=== PATIENT | female | born 1990 | race Caucasian/White ===

== ENCOUNTER 2018-06-20 10:33 | Emergency (ER) | payer OTHER ==
[2018-06-20] MEDS ORDERED: Sodium Chloride 0.9% 2.5 ML Syringe FLUSH PRN (10:53)
[2018-06-20] MEDS ORDERED: Sodium Chloride 0.9% 1,000 ML IV ONE (10:53)
[2018-06-20] MEDS ORDERED: Sodium Chloride 0.9% 10 ML Syringe FLUSH PRN (10:53)
--- NOTE | 2018-06-20 10:55 | EDM.PDOC ---
ED HPI GENERAL MEDICAL PROBLEM - General Chief Complaint: Abdominal Pain Stated Complaint: ABDOMINAL PAIN Time Seen by Provider: 06/20/18 10:35 Source of Information: Reports: Patient History Limitations: Reports: No Limitations - History of Present Illness INITIAL COMMENTS - FREE TEXT/NARRATIVE: History of present illness: []Patient is postop day 2 from a breast reduction and arrives complaining constipation, bilateral abdominal pain and right flank pain. Patient is constipated and passing a minimal amount of gas. She denies any difficulty urinating, fevers, chills or vomiting. Patient has no concerns about her surgical wound sites at this time. Review of systems: As per history of present illness and below otherwise all systems reviewed and negative. Past medical history: As per history of present illness and as reviewed below otherwise noncontributory. Surgical history: As per history of present illness and as reviewed below otherwise noncontributory. Social history: No reported history of drug or alcohol abuse. Family history: As per history of present illness and as reviewed below otherwise noncontributory. Physical exam: General: Well developed, well nourished in NAD HEENT: Atraumatic, normocephalic, pupils reactive, negative for conjunctival pallor or scleral icterus, mucous membranes moist, throat clear, neck supple, nontender, trachea midline. Lungs: Clear to auscultation, breath sounds equal bilaterally, chest nontender. Heart: S1S2, regular, negative for clicks, rubs, or JVD. Abdomen: Decreased bowel sounds Soft, nondistended, mild tenderness in the lower abdomen no rebound or guarding. Negative for masses or hepatosplenomegaly. Negative for costovertebral tenderness. Pelvis: Stable nontender. Genitourinary: Deferred. Rectal: Deferred. Extremities: Atraumatic, negative for cords or calf pain. Neurovascular unremarkable. Neuro: Awake, alert, oriented. Cranial nerves II through XII unremarkable. Cerebellum unremarkable. Motor and sensory unremarkable throughout. Exam nonfocal. Skin:warm and dry Diagnostics: Patient refused blood draw and IV. Acute abdominal series taken no obstruction seen Therapeutics: She declined pain meds ED Course: Unremarkable Impression: Constipation Prescriptions: None Plan: Increase fluids, continue Colace, use magnesium citrate for constipation follow- up with a surgeon or primary care. Return to ER if symptoms Worsen or change. Definitive disposition and diagnosis as appropriate pending reevaluation and review of above. Middle Abdominal Pain Score (Numeric/FACES): 6 - Related Data Allergies Allergy/AdvReac Type Severity Reaction Status Date / Time No Known Allergies Allergy Verified 06/20/18 10:48 Home Meds: Home Meds Cephalexin [Keflex] 500 mg PO TID 06/20/18 [History] Docusate Sodium [Colace] 50 mg PO DAILY PRN 06/20/18 [History] Hydrocodone/Acetaminophen [Hydrocodon-Acetaminophen 5-325] 5 - 325 mg PO Q6H PRN 06/20/18 [History] Past Medical History HEENT History: Reports: None Cardiovascular History: Reports: None Respiratory History: Reports: None Gastrointestinal History: Reports: None [employer] History: Reports: Musculoskeletal History: Reports: None Neurological History: Reports: None Psychiatric History: Reports: None Endocrine/Metabolic History: Reports: None Dermatologic History: Reports: None - Infectious Disease History Infectious Disease History: Reports: Chicken Pox - Past Surgical History Female Surgical History: Reports: Breast Reduction, Section Social & Family History - Family History Family Medical History: Noncontributory - Tobacco Use Smoking Status *Q: Never Smoker - Caffeine Use Caffeine Use: Reports: Coffee, Energy Drinks, Soda, Tea - Recreational Drug Use Recreational Drug Use: No ED ROS GENERAL - Review of Systems Review Of Systems: ROS reveals no pertinent complaints other than HPI. ED EXAM, GI/ABD - Physical Exam Exam: See Below (See history of present illness) Course - Vital Signs Last Recorded V/S: Last Vital Signs Temp 97.1 F 06/20/18 10:45 Pulse 102 H 06/20/18 10:45 Resp 16 06/20/18 10:45 BP 106/61 06/20/18 10:45 Pulse Ox 96 06/20/18 10:45 - Orders/Labs/Meds Orders: Active Orders 24 hr Category Date Time Status Abdomen Series w Chest 1V [CR] Stat Exams 06/20/18 10:59 Ordered Meds: Medications Discontinued Medications Generic Name Dose Route Start Last Admin Trade Name Freq PRN Reason Stop Dose Admin Sodium Chloride 1,000 mls @ 999 mls/hr 06/20/18 10:53 Normal Saline IV 06/20/18 11:53 .Bolus ONE Sodium Chloride 10 ml 06/20/18 10:53 Saline Flush FLUSH ASDIRECTED PRN Keep Vein Open Sodium Chloride 2.5 ml 06/20/18 10:53 Saline Flush FLUSH ASDIRECTED PRN Keep Vein Open Departure - Departure Time of Disposition: 11:29 Disposition: Home, Self-Care 01 Condition: Good Clinical Impression: Constipation Qualifiers: Constipation type: unspecified constipation type Qualified Code(s): K59.00 - Constipation, unspecified - Discharge Information *PRESCRIPTION DRUG MONITORING PROGRAM REVIEWED*: No *COPY OF PRESCRIPTION DRUG MONITORING REPORT IN PATIENT SEEMA: No Referrals: PCP,None [Primary Care Provider] - Forms: ED Department Discharge Additional Instructions: The following information is given to patients seen in the emergency department who are being discharged to home. This information is to outline your options for follow-up care. We provide all patients seen in our emergency department with a follow-up referral. The need for follow-up, as well as the timing and circumstances, are variable depending upon the specifics of your emergency department visit. If you don't have a primary care physician on staff, we will provide you with a referral. We always advise you to contact your personal physician following an emergency department visit to inform them of the circumstance of the visit and for follow-up with them and/or the need for any referrals to a consulting specialist. The emergency department will also refer you to a specialist when appropriate. This referral assures that you have the opportunity for follow-up care with a specialist. All of these measure are taken in an effort to provide you with optimal care, which includes your follow-up. Under all circumstances we always encourage you to contact your private physician who remains a resource for coordinating your care. When calling for follow-up care, please make the office aware that this follow-up is from your recent emergency room visit. If for any reason you are refused follow-up, please contact the [facility] Emergency Department at and asked to speak to the emergency department charge nurse. Increase fluids, use magnesium citrate for constipation, continue Colace, ambulate as much as possible follow-up with regular physician. [facility] [address] [place] [id number] - My Orders Last 24 Hours: My Active Orders 06/20/18 10:59 Abdomen Series w Chest 1V [CR] Stat - Assessment/Plan Last 24 Hours: My Active Orders 06/20/18 10:59 Abdomen Series w Chest 1V [CR] Stat
--- NOTE | 2018-06-22 14:02 | CR ---
EXAM DATE: 06/20/18 PATIENT'S AGE: 27 Patient: SOHAM BOJORQUEZ Facility: [place], [place] Site . Site : [id number] Study: XRay Abdomen [id number] 11:30:22 AM Ordering Physician: Doctor Angel Final Report: INDICATION: Constipation. Recent breast reduction surgery. TECHNIQUE: 1 view chest. Two views abdomen and pelvis. FINDINGS: Heart and mediastinum are normal in size. Pulmonary vessels are normal. Lungs are clear and are fully expanded. No pleural fluid. No free intraperitoneal air. Nonobstructive bowel gas pattern. Scattered air and stool throughout the colon. No calcifications overlying the kidneys, pancreas, or hepatobiliary system. No mass or organomegaly. No acute bony abnormality. IMPRESSION: 1. No acute chest disease. 2. No bowel obstruction or perforation. Dictated by Dee Pastor MD @ Jun 20 2018 11:54AM (Electronic Signature) Report Signed by Proxy. NAY
== END 2018-06-20 11:43 | disposition home or self-care (01) ==
LOC: MW.ED 10:33
DX: K59.00 Constipation, unspecified (principal); Z98.890 Other specified postprocedural states
CPT/HCPCS: 74022; 74022-26; 99283

== ENCOUNTER 2023-08-03 20:41 | Emergency (ER) | payer BC, OTHER | END 2023-08-03 21:50 | disposition home or self-care (01) | LOC: MW.ED 20:41 | DX: R11.0 Nausea (principal); R51.9 Headache, unspecified; Z98.890 Other specified postprocedural states | CPT/HCPCS: 82375; 99282; 99284 ==